=== PATIENT | male | born 1990 | race Caucasian/White ===

== ENCOUNTER 2018-10-03 17:25 | Emergency (ER) | payer BC ==
[2018-10-03] MEDS: IBUPROFEN 800 MG TAB PO (21:10)
== END 2018-10-03 22:56 | disposition home or self-care (01) ==
LOC: FTE 17:25
DX: S62.339A Displaced fracture of neck of unspecified metacarpal bone, initial encounter for closed fracture (principal); F17.210 Nicotine dependence, cigarettes, uncomplicated; W23.0XXA Caught, crushed, jammed, or pinched between moving objects, initial encounter; Y92.810 Car as the place of occurrence of the external cause
CPT/HCPCS: 29125; 73130-RT; 99283-25